=== PATIENT | female | born 1975 | race Caucasian/White ===

== ENCOUNTER → 2016-09-26 | Outpatient (CLI) | payer OTHER ==
--- NOTE | 2016-09-26 21:33 | REP ---
LEFT THIRD DIGIT: CLINICAL: Pain without trauma. TECHNIQUE: AP, lateral, bilateral oblique views of the left third digit. FINDINGS: Very minimal age-related degenerative changes include sclerosis and subtle joint space narrowing at the interphalangeal joints. No acute fracture or dislocation. No swelling. No subcutaneous emphysema or radiodense foreign body. IMPRESSION: Mild age-related degenerative changes at the interphalangeal joints. Unreviewed
== END ==
LOC: M ADAMS 19:16
PROVIDERS: ATTEND Physician Assistant
DX: M79.645 Pain in left finger(s) (principal)

== ENCOUNTER → 2016-10-09 | Outpatient (CLI) | payer OTHER ==
[2016-10-09 17:00] LABS: BASO % 0.7 % (0.0-1.0); EOS # 0.1 K/mm3 (0.0-0.50); EOS % 1.5 % (0.0-3.0); LARGE UNSTAINED CELL # 0.2 K/mm3 (0.0-0.4); LARGE UNSTAINED CELL % 2.7 % (0.0-4.0); LYMPH # 2.5 K/mm3 (1.5-4.5); LYMPH % 38.6 % (24.0-44.0); MEAN CORPUSCULAR HEMOGLOBIN 30.7 pg (27.0-33.0); MEAN CORPUSCULAR HGB CONC 32.5 g/dl (32.0-36.5); MEAN CORPUSCULAR VOLUME 94.7 fl (80.0-96.0); MONO # 0.3 K/mm3 (0.0-0.8); NEUTROPHILS # 3.3 K/mm3 (1.8-7.7); NEUTROPHILS % 51.5 % (36.0-66.0); PLATELET COUNT, AUTOMATED 214 k/mm3 (150-450); RED CELL DISTRIBUTION WIDTH 12.4 % (11.5-14.5); WHITE BLOOD COUNT 6.4 K/mm3 (4.0-10.0)
[2016-10-09 17:21] LABS: URIC ACID 2.1 MG/DL (2.6-6.0)
[2016-10-09 18:38] LABS: ERYTHROCYTE SEDIMENTATION RATE 3 mm/hr (0-20)
== END ==
LOC: M ADAMS 09:54
PROVIDERS: ATTEND Physician Assistant Medical
DX: M79.645 Pain in left finger(s) (principal)

== ENCOUNTER → 2017-01-20 | Outpatient (CLI) | payer OTHER ==
--- NOTE | 2017-01-20 09:44 | REPMRS ---
Patient History The patient states she had a clinical breast exam in 01/2017. Family history of prostate cancer in paternal grandfather at age 50 or over, breast cancer in maternal aunt under age 50, breast cancer in paternal aunt under age 50, and breast cancer in paternal cousin under age 50. Digital Woman Screen Mammo: January 20, 2017 - Exam #: [id number] Bilateral CC and MLO view(s) were taken. Technologist: Amy Lam, Technologist Prior study comparison: January 21, 2016, digital woman screen mammo performed at [facility]. January 20, 2015, digital woman screen mammo performed at [facility]. FINDINGS: The breast tissue is heterogeneously dense. This may lower the sensitivity of mammography. There has been no change in the appearance of the mammogram from the prior studies. There is a moderate amount of residual fibroglandular tissue which is fairly symmetric. There is no interval development of dominant mass, areas of architectural distortion, or clustered microcalcification typical of malignancy. ASSESSMENT: BI-RADS/ACR category 1 mammogram. Negative. Recommendation Routine screening mammogram in 1 year (for women over age 40). This mammogram was interpreted with the aid of an FDA-approved computer-aided dectection system. Electronically Signed By: Savage Veliz MD 01/20/17 0931
== END ==
LOC: M WHC 08:46
PROVIDERS: ATTEND Nurse Practitioner Women's Health
DX: Z12.31 Encounter for screening mammogram for malignant neoplasm of breast (principal); Z80.3 Family history of malignant neoplasm of breast

== ENCOUNTER → 2018-01-23 | Outpatient (CLI) | payer OTHER | LOC: M WHC 08:43 | DX: Z12.31 Encounter for screening mammogram for malignant neoplasm of breast (principal) ==

== ENCOUNTER → 2018-08-27 | Outpatient (CLI) | payer OTHER ==
[~2018-08-27] MED LIST: PROHANCE 279.3MG/ML 15ML VIAL (A9576) As Ordered ONE
--- NOTE | 2018-08-27 14:53 | REP ---
MRI BREAST WITH AND WITHOUT CONTRAST: HISTORY: Family history of two aunts with breast cancer. [facility] lifetime risk of breast cancer is 24.9%. There is dense breast parenchymal correlating with the prior mammograms, most recently in January 2018. TECHNIQUE: Multiple sequences are obtained in the axial, coronal and sagittal planes prior to and following the intravenous administration of 13 mL ProHance. Images are evaluated on the [employer] software with subtraction pre- and post gadolinium images, MIP reconstruction images and color overlay, as well as CAD imaging. There is a moderate to large amount of breast parenchyma bilaterally correlating with the dense appearance by mammography. There are multiple bilateral cysts present. Most of these are subcentimeter in size. They are slightly larger on the left side, largest is inferolateral measuring 9 mm in maximum diameter. No axillary adenopathy is seen, with normal size axillary lymph nodes bilaterally. There is mild to moderate background parenchymal enhancement bilaterally in a fairly symmetrical pattern. No enhancing mass is seen. No suspicious morphologic abnormality is seen. IMPRESSION: ACR 2 benign bilateral breast MRI. Large amount of parenchymal tissue bilaterally with scattered small cysts. No suspicious mass or morphologic abnormality. Continued annual supplemental screening MRI is recommended, given the patient's dense breast parenchyma and elevated lifetime risk of breast cancer. Electronically Signed by Savage Veliz MD 08/27/2018 03:25 P
== END ==
LOC: M RAD 12:30
PROVIDERS: ATTEND Nurse Practitioner Women's Health
DX: Z12.31 Encounter for screening mammogram for malignant neoplasm of breast (principal)
CPT/HCPCS: A9576; C8908

== ENCOUNTER → 2019-05-16 | Outpatient (REF) | payer OTHER | LOC: M PLALAB 15:42 | PROVIDERS: ATTEND Nurse Practitioner Women's Health | DX: Z12.4 Encounter for screening for malignant neoplasm of cervix (principal) | CPT/HCPCS: 87624; G0123 ==

== ENCOUNTER 2019-07-04 16:41 | Emergency (ER) | payer OTHER ==
[~2019-07-04] VITALS: Ht 162.6 cm; Wt 70.7 kg
[2019-07-04] MEDS ORDERED: MULTIVITAMIN WITH MINERALS (16:56)
[2019-07-04] MEDS ORDERED: NAPR250T4 PO (16:56)
[2019-07-04 19:50] VITALS: BP 133/78
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
== END 2019-07-04 19:51 | disposition home or self-care (01) ==
LOC: M ED 16:41
DX: M54.5 Low back pain (principal); V43.62XA Car passenger injured in collision with other type car in traffic accident, initial encounter; Y92.9 Unspecified place or not applicable; Y93.9 Activity, unspecified; Y99.9 Unspecified external cause status; Z88.2 Allergy status to sulfonamides; Z88.5 Allergy status to narcotic agent

== ENCOUNTER → 2019-12-11 | Outpatient (CLI) | payer OTHER ==
[~2019-12-11] MED LIST changes: +MULTIVITAMIN WITH MINERALS; +NAPR250T4 PO; -PROHANCE 279.3MG/ML 15ML VIAL (A9576) As Ordered ONE; +PROHANCE 279.3MG/ML 15ML VIAL As Ordered ONE
--- NOTE | 2019-12-12 01:42 | REP ---
MRI BILATERAL BREASTS WITH AND WITHOUT CONTRAST: HISTORY: Dense breasts. Family history of breast cancer in maternal aunt, paternal aunt, and paternal cousin. [facility] lifetime risk of breast cancer 24.6%. COMPARISON: Mammogram 05/16/2019 and MRI 08/27/2018. TECHNIQUE: Multiple sequences obtained in the axial, coronal, and sagittal planes prior to and following the intravenous administration of 13 mL ProHance. Images are evaluated in the [employer] software, including dynamic post IV gadolinium axial T1 fat-sat images, subtraction images, color overlay images, CAD images, and MIP reconstruction images. Moderate fibroglandular tissue is again seen bilaterally. There is moderate background parenchymal enhancement bilaterally. Subcentimeter cysts are scattered throughout both breasts. The largest is in the left breast measuring 7 mm in diameter in the retroareolar region. There is no axillary adenopathy. There is no suspicious enhancing mass or morphologic abnormality. IMPRESSION: BI-RADS category 2, benign bilateral breast MRI. Subcentimeter cysts in both breasts. No suspicious enhancing mass or morphologic abnormality. Yearly supplemental screening MRI of the breast is recommended for patients with an elevated lifetime risk of breast cancer of 20% or greater, in addition to annual screening mammography. Electronically Signed by Savage Veliz MD 12/12/2019 09:41 A
== END ==
LOC: M RAD 12:42
PROVIDERS: ATTEND Nurse Practitioner Women's Health
DX: N60.11 Diffuse cystic mastopathy of right breast (principal); N60.12 Diffuse cystic mastopathy of left breast; Z80.3 Family history of malignant neoplasm of breast
CPT/HCPCS: A9576; C8908

== ENCOUNTER → 2020-09-30 | Outpatient (REF) | payer OTHER ==
[~2020-09-30] MED LIST changes: +NAPR-849 PO; -NAPR250T4 PO; -PROHANCE 279.3MG/ML 15ML VIAL As Ordered ONE
[2020-09-30 13:10] LABS: HEMATOCRIT 42.8 % (36.0-47.0); HEMOGLOBIN 14.1 g/dl (12.0-15.5); MEAN CORPUSCULAR HEMOGLOBIN 30.7 pg (27.0-33.0); MEAN CORPUSCULAR HGB CONC 32.9 g/dl (32.0-36.5); PLATELET COUNT, AUTOMATED 246 10^3/uL (150-450); WHITE BLOOD COUNT 6.3 10^3/uL (4.0-10.0)
[2020-09-30 13:34] LABS: ALT/SGPT 21 U/L (12-78); BILIRUBIN,TOTAL 0.9 MG/DL (0.2-1.0); BLOOD UREA NITROGEN 17 MG/DL (7-18); CALCIUM LEVEL 9.3 MG/DL (8.5-10.1); CARBON DIOXIDE LEVEL 30 MEQ/L (21-32); CHLORIDE LEVEL 106 MEQ/L (98-107); CHOLESTEROL LEVEL 193 MG/DL (<200); CHOLESTEROL RISK RATIO 2.297 (<5); CREATININE FOR GFR 0.79 MG/DL (0.55-1.30); GLOMERULAR FILTRATION RATE > 60.0 (>58); GLUCOSE, FASTING 82 MG/DL (70-100); HDL CHOLESTEROL 84 MG/DL (>40); LDL CHOLESTEROL 90 MG/DL (<100); NON-HDL-C 109 MG/DL; POTASSIUM SERUM 4.3 MEQ/L (3.5-5.1); SODIUM LEVEL 140 MEQ/L (136-145); TOTAL PROTEIN 7.2 GM/DL (6.4-8.2); TRIGLYCERIDES LEVEL 93 MG/DL (<150)
[2020-09-30 13:40] LABS: TOTAL 25(OH) VITAMIN D 45.1 NG/ML (30.0-100.0)
== END ==
LOC: M SFHCADAM 07:59
PROVIDERS: ATTEND Physician Assistant
DX: E55.9 Vitamin D deficiency, unspecified (principal); Z13.220 Encounter for screening for lipoid disorders; Z13.1 Encounter for screening for diabetes mellitus

== ENCOUNTER → 2020-11-04 | Outpatient (CLI) | payer OTHER ==
--- NOTE | 2020-11-04 12:01 | REPMRS ---
Patient History The patient states she had a clinical breast exam in November 2020. Family history of breast cancer under age 50 in maternal aunt, breast cancer under age 50 in paternal aunt, breast cancer under age 50 in paternal cousin, prostate cancer at age 50 or over in paternal grandfather, colorectal cancer at age 50 or over in maternal uncle. No breast complaints today Patient signed the MRS sheet No covid vaccine Priors on PACS Patient Identification Verified Patient denied Digital Woman Screen Mammo: November 04, 2020 - Exam #: [id number] Bilateral CC and MLO view(s) were taken. Technologist: Yady Hale, Technologist Prior study comparison: May 16, 2019, bilateral digital woman screen mammo performed at [facility]. February 01, 2018, left breast digital mammo diagnostic unilateral, performed at [facility]. FINDINGS: The breast tissue is heterogeneously dense. This may lower the sensitivity of mammography. Screening. Digital screening (2D) mammography was performed bilaterally in the CC and MLO projections. Additionally, breast tomosynthesis (3D mammography) was performed bilaterally in the CC and MLO projections. Todays exam was compared to the prior exams. By history, the patient has no complaints of a palpable breast abnormality or other significant breast complaints. The breasts are unchanged in size and shape.Once again, dense heterogenous fibroglandular elements are seen bilaterally in a stable appearing pattern but to such a degree that the sensitivity of the mammogram in detecting cancer is decreased. There are no jemal-soft tissue densities or spiculated masses. There is no internal architectural distortion. There are no suspicious jemal-calcific clusters. Skin thickening or nipple retraction is not present. IMPRESSION: BI-RADS Category 2- Benign Findings. There is no evidence of malignant alteration of the breasts. Followup examination recommended in one year. The Volpara volumetric breast density category is C, the breasts are heterogenously dense which may obscure small masses. This mammogram was read with the assistance of [employer],an FDA approved computer aided detection system for mammography. The lifetime Tyrer-Cuzick score is 24.2 %. Due to the density of the breasts, MRI/whole breast screening ultrasound is warranted. Negative x-ray reports should not delay surgical consultation if a dominant or clinically suspicious mass is present. Not all breast cancers can be identified by mammography. Therefore, we recommend that you continue to perform regular breast self-examination and physical examination and then promptly contact your physician of any concerns or changes. Adenosis and dense breasts may obscure an underlying neoplasm. Assessment: BI-RADS/ACR category 2 mammogram. Benign Findings. Recommendation Routine screening mammogram of both breasts in 1 year. Electronically Signed By: Lele Wallace DO 11/04/20 1200
== END ==
LOC: M WHC 09:51
PROVIDERS: ATTEND Nurse Practitioner Women's Health
DX: Z12.31 Encounter for screening mammogram for malignant neoplasm of breast (principal); Z80.3 Family history of malignant neoplasm of breast; Z80.42 Family history of malignant neoplasm of prostate; Z80.0 Family history of malignant neoplasm of digestive organs

== ENCOUNTER → 2021-04-05 | Outpatient (CLI) | payer OTHER ==
[~2021-04-05] MED LIST changes: +PROHANCE 279.3MG/ML 15ML VIAL As Ordered ONE
--- NOTE | 2021-04-06 08:35 | REP ---
INDICATION: FAMILY HISTORY OF BREAST CA, DENSE BREAST TISSUE. COMPARISON: 12/11/2019, 08/27/2018, mammogram 11/04/2020. TECHNIQUE: Three Erica MRI imaging was performed with a dedicated breast coil. Axial, coronal, and sagittal T1 and T2 weighted scans were obtained with and without fat saturation in the usual fashion. The study includes dynamically acquired post gadolinium-enhanced imaging with image subtraction. Maximum intensity projection and multi planar reformation imaging is included as well. This study is interpreted with the aid of [employer], an FDA approved computer aided detection (CAD) software program, on a dedicated breast MRI workstation. The gadolinium enhancement dose is 13 mL of intravenous ProHance. FINDINGS: There is moderate fibroglandular tissue bilaterally. There is no axillary adenopathy. There are few subcentimeter cysts bilaterally. There is no suspicious enhancing mass or morphologic abnormality. There is mild background parenchymal enhancement. IMPRESSION: BI-RADS category 2, benign. There are a few subcentimeter cysts bilaterally. No suspicious enhancing mass or morphologic abnormality. Yearly supplemental screening MRI of the breasts is recommended for patients with an elevated lifetime risk of breast cancer of 20% or greater, in addition to annual screening mammography, staggered every 6 months. <Electronically signed by Savage Veliz > 04/06/21 0829
== END ==
LOC: M RAD 15:50
PROVIDERS: ATTEND Nurse Practitioner Women's Health
DX: R92.2 Inconclusive mammogram (principal); Z80.3 Family history of malignant neoplasm of breast; Z91.89 Other specified personal risk factors, not elsewhere classified; N60.11 Diffuse cystic mastopathy of right breast; N60.12 Diffuse cystic mastopathy of left breast
CPT/HCPCS: A9576; C8908

== ENCOUNTER → 2022-01-05 | Outpatient (CLI) | payer OTHER ==
[~2022-01-05] MED LIST changes: -PROHANCE 279.3MG/ML 15ML VIAL As Ordered ONE
== END ==
LOC: M WHC 07:22
PROVIDERS: ATTEND Nurse Practitioner Family
DX: Z12.31 Encounter for screening mammogram for malignant neoplasm of breast (principal)

== ENCOUNTER → 2022-01-05 | Outpatient (REF) | payer OTHER | LOC: M PLALAB 08:41 | PROVIDERS: ATTEND Nurse Practitioner Family | DX: Z12.4 Encounter for screening for malignant neoplasm of cervix (principal); R87.610 Atypical squamous cells of undetermined significance on cytologic smear of cervix (ASC-US) | CPT/HCPCS: 87624; G0123 ==

== ENCOUNTER → 2022-03-20 | Outpatient (CLI) | payer OTHER ==
[~2022-03-20] MED LIST changes: +CHEL100T4 PO; +IBUP200C25 PO; +KELP150T2 PO; +VITMTA PO
== END ==
LOC: M LABSMTC 11:44
PROVIDERS: ATTEND Anesthesiology
DX: Z01.812 Encounter for preprocedural laboratory examination (principal); Z11.52 Encounter for screening for COVID-19

== ENCOUNTER → 2022-12-21 | Outpatient (REF) | payer OTHER ==
[~2022-12-21] MED LIST changes: +CVS1CAP2 PO; +L-LY500T14 PO; +VITA100093 PO
[2022-12-21 13:12] LABS: BLOOD UREA NITROGEN 15 MG/DL (9-23); CALCIUM LEVEL 8.7 MG/DL (8.5-10.1); CARBON DIOXIDE LEVEL 28 MMOL/L (20-31); CHLORIDE LEVEL 104 MMOL/L (98-107); CHOLESTEROL LEVEL 165 MG/DL (<200); CHOLESTEROL RISK RATIO 2.31 (<5); CREATININE FOR GFR 0.67 MG/DL (0.55-1.30); GLOMERULAR FILTRATION RATE > 60.0 (>58); GLUCOSE, FASTING 80 MG/DL (60-100); HDL CHOLESTEROL 71.3 MG/DL (>40); LDL CHOLESTEROL 72.7 MG/DL (<100); NON-HDL-C 93.7 MG/DL; SODIUM LEVEL 138 MMOL/L (136-145); TRIGLYCERIDES LEVEL 105 MG/DL (<150)
[2022-12-21 13:14] LABS: BASO % 0.7 % (0.0-1.0); EOS # 0.1 10^3/uL (0.0-0.5); EOS % 1.9 % (0.0-3.0); HEMATOCRIT 41.3 % (36.0-47.0); HEMOGLOBIN 13.6 g/dl (12.0-15.5); LYMPH # 2.5 10^3/uL (1.5-5.0); LYMPH % 42.5 % (24.0-44.0); MEAN CORPUSCULAR HEMOGLOBIN 30.6 pg (27.0-33.0); MEAN CORPUSCULAR HGB CONC 32.9 g/dl (32.0-36.5); MEAN CORPUSCULAR VOLUME 92.8 fl (80.0-96.0); MONO # 0.5 10^3/uL (0.0-0.8); NEUTROPHILS # 2.7 10^3/uL (1.5-8.5); NEUTROPHILS % 46.7 % (36.0-66.0); PLATELET COUNT, AUTOMATED 221 10^3/uL (150-450); RED BLOOD COUNT 4.45 10^6/uL (4.00-5.40); WHITE BLOOD COUNT 5.8 10^3/uL (4.0-10.0)
== END ==
LOC: M LABDRWAD 12:08
PROVIDERS: ATTEND Internal Medicine Gastroenterology
DX: Z00.00 Encounter for general adult medical examination without abnormal findings (principal); R19.7 Diarrhea, unspecified

== ENCOUNTER → 2023-03-08 | Outpatient (CLI) | payer OTHER | LOC: M WHC 13:06 | PROVIDERS: ATTEND Nurse Practitioner Family | DX: Z12.31 Encounter for screening mammogram for malignant neoplasm of breast (principal) ==

== ENCOUNTER → 2023-03-08 | Outpatient (REF) | payer OTHER | LOC: M SFHCWAGY 15:12 | PROVIDERS: ATTEND Nurse Practitioner Family | DX: Z12.4 Encounter for screening for malignant neoplasm of cervix (principal); R87.610 Atypical squamous cells of undetermined significance on cytologic smear of cervix (ASC-US) | CPT/HCPCS: 87624; G0123 ==

== ENCOUNTER → 2023-09-01 | Outpatient (CLI) | payer OTHER ==
[~2023-09-01] MED LIST changes: +PROHANCE 279.3MG/ML 15ML VIAL ONE
== END ==
LOC: M PLAIMG 11:00
PROVIDERS: ATTEND Nurse Practitioner Family
DX: R92.2 Inconclusive mammogram (principal); Z80.3 Family history of malignant neoplasm of breast; Z91.89 Other specified personal risk factors, not elsewhere classified
CPT/HCPCS: A9576; C8908

== ENCOUNTER → 2024-01-30 | Outpatient (CLI) | payer OTHER ==
[~2024-01-30] MED LIST changes: -PROHANCE 279.3MG/ML 15ML VIAL ONE
== END ==
LOC: M WHC 10:04
PROVIDERS: ATTEND Nurse Practitioner Family
DX: Z12.31 Encounter for screening mammogram for malignant neoplasm of breast (principal); Z53.9 Procedure and treatment not carried out, unspecified reason

== ENCOUNTER → 2024-03-13 | Outpatient (CLI) | payer OTHER | LOC: M WHC 16:09 | PROVIDERS: ATTEND Nurse Practitioner Family | DX: Z12.31 Encounter for screening mammogram for malignant neoplasm of breast (principal); R92.333 Mammographic heterogeneous density, bilateral breasts ==

== ENCOUNTER → 2024-03-13 | Outpatient (REF) | payer OTHER ==
[2024-03-18 12:20] LABS: HPV APTIMA Not Detected (Not Detected)
== END ==
LOC: M PLALAB 16:45
PROVIDERS: ATTEND Nurse Practitioner Family
DX: R87.610 Atypical squamous cells of undetermined significance on cytologic smear of cervix (ASC-US) (principal); Z11.51 Encounter for screening for human papillomavirus (HPV)
CPT/HCPCS: 87624; G0123

== ENCOUNTER → 2024-06-18 | Outpatient (REF) | payer OTHER ==
[2024-06-18 10:31] LABS: APPEARANCE, URINE CLOUDY (CLEAR); BACTERIA, URINE AUTO 1+ (NEGATIVE); BILIRUBIN, URINE AUTO NEGATIVE (NEGATIVE); BLOOD, URINE BLOOD NEGATIVE (NEGATIVE); COLOR, URINE AMBER (YELLOW); GLUCOSE, URINE (UA) AUTO NEGATIVE (NEGATIVE); KETONE, URINE AUTO NEGATIVE (NEGATIVE); LEUKOCYTE ESTERASE, URINE AUTO 3+ (NEGATIVE); MUCUS, URINE SMALL (NEGATIVE); NITRITE, URINE AUTO NEGATIVE (NEGATIVE); PROTEIN, URINE AUTO NEGATIVE (NEGATIVE); RBC, URINE AUTO 2 /HPF (0-3); SPECIFIC GRAVITY URINE AUTO 1.011 (1.002-1.035); SQUAMOUS EPITHELIAL CELL UR AU 0 /HPF (0-6); UROBILINOGEN, URINE AUTO 0.2 mg/dL (0.0-2.0); WBC, URINE AUTO TNTC /HPF (0-3)
== END ==
LOC: M LABWUC 09:54
PROVIDERS: ATTEND Student in an Organized Health Care Education/Training Program
DX: N30.00 Acute cystitis without hematuria (principal)